=== PATIENT | female | born 1975 | race Hispanic/Latino ===

== ENCOUNTER → 2017-08-26 | Outpatient (CLI) | payer OTHER ==
--- NOTE | 2017-08-26 11:07 | Diagnostic Imaging Report ---
Pelvic ultrasound, August 26, 2017 Clinical history: Possible ovarian cyst Comparison: None Technique: Transabdominal and transvaginal grayscale and color Doppler pelvic ultrasound. Transvaginal ultrasound necessary for full evaluation of the ovaries. Findings: Uterus: Anteverted, measuring 9.4 x 4.4 x 5 cm. Endometrial thickness 6 mm. Normal appearing uterus. The posterior margin of the cervix contains a 1.9 x 1.5 x 2 cm anechoic cyst. Right ovary: 2.8 x 1.2 x 2.3 cm Left ovary: 2.6 x 2.5 x 2.6 cm. The ovaries are normal. Impression: 1. Large simple cervical cyst. 2. Normal ovaries. 3. Normal uterus. This report was generated with voice-recognition technology. Errors in outside sales consultant can occur. Please interpret accordingly and contact a radiologist if there are any questions regarding the report. Signed by: Dr. Fareed Farnsworth M.D. on 08/26/2017 11:03 AM
--- NOTE | 2017-08-26 11:07 | Diagnostic Imaging Report ---
Pelvic ultrasound, August 26, 2017 Clinical history: Possible ovarian cyst Comparison: None Technique: Transabdominal and transvaginal grayscale and color Doppler pelvic ultrasound. Transvaginal ultrasound necessary for full evaluation of the ovaries. Findings: Uterus: Anteverted, measuring 9.4 x 4.4 x 5 cm. Endometrial thickness 6 mm. Normal appearing uterus. The posterior margin of the cervix contains a 1.9 x 1.5 x 2 cm anechoic cyst. Right ovary: 2.8 x 1.2 x 2.3 cm Left ovary: 2.6 x 2.5 x 2.6 cm. The ovaries are normal. Impression: 1. Large simple cervical cyst. 2. Normal ovaries. 3. Normal uterus. This report was generated with voice-recognition technology. Errors in tire mechanic can occur. Please interpret accordingly and contact a radiologist if there are any questions regarding the report. Signed by: Dr. Fareed Farnsworth M.D. on 08/26/2017 11:03 AM
--- NOTE | 2017-08-27 16:06 | Diagnostic Imaging Report ---
#[id number] - [id number] #BILATERAL DIGITAL SCREENING MAMMOGRAM WITH CAD: 08/26/2017 CLINICAL: Routine screening. No prior exams were available for comparison. Current study contains 4 films. The tissue of both breasts is heterogeneously dense. This may lower the sensitivity of mammography. Current study was also evaluated with a Computer Aided Detection (CAD) system. No significant masses, calcifications or other findings are seen in either breast. IMPRESSION: BENIGN There is no mammographic evidence of malignancy. A 1 year screening mammogram is recommended. The patient will be notified by letter of the results. Erasto Jama Jr., D.O. cw/:08/27/2017 10:58:02 [employer] Consultant: Shauna TSANG(R)(M), [facility] letter sent: Normal Exam Mammogram BI-RADS: 2 Benign
== END ==
LOC: MAMMO 09:29
PROVIDERS: ATTEND Internal Medicine
DX: Z12.31 Encounter for screening mammogram for malignant neoplasm of breast (principal); R10.2 Pelvic and perineal pain
CPT/HCPCS: 76830; 76856; G0202